=== PATIENT | female | born 1940 | race Caucasian/White ===

== ENCOUNTER → 2018-07-11 06:53 | Day surgery (SDC) | payer MEDICARE ==
[~2018-07-11 06:53] MED LIST: Heparin 2 UNITS/ML IVPREMIX* 1,000 ML IV ONE; Heparin 2 UNITS/ML IVPREMIX* 2,000 ML IV ONE; Heparin(*) 1000 UNIT/ML 10 ML VIAL CATH LAB IV ONE; Iodixanol 320 (CONTRAST) 100 ML SDV ONE; Iohexol 350 (CONTRAST) 200 ML MDV IV ONE; LORazepam TAB(*) 1 MG ONE; Lidocaine 1% INJ* 10 MG/ML 30 ML SDV ONE; Midazolam* 1 MG/ML 10 ML VIAL (10 MG) ONE; fentaNYL* 50 MCG/ML 5 ML VIAL (250 MCG VIAL) ONE
[2018-07-11 12:58] VITALS: BP 136/71
--- NOTE | 2018-07-11 13:52 | PN ---
Progress Note - Progress Note Date of Service: 07/11/18 SOAP: Subjective: Patient denies pain. No SOB. No nausea. Objective: Selected Entries 07/11/18 12:52 Pulse Rate 73 Heart Rate 73 Respiratory 17 Rate Blood Pressure 136/71 (mmHg) Blood Pressure 81 Mean O2 Sat by Pulse 96 Oximetry NAD, AAO x 3 Abd is soft, NT Right groin over arteriotomy is soft, minimally tender 2+ left CLEARING DISTRIBUTION CLERK pulse LE neuromuscular intact (patient ambulating independently when I arrived) Assessment: 77 YOF s/p pelvic and BLE arteriography from left CLEARING DISTRIBUTION CLERK access. Plan: 1. Routine IR follow up including RN call 07/14/[address] Contreras at [facility] for left CF atherectomy 3. Continue ASA 81 and Plavix
== END | disposition home or self-care (01) ==
LOC: CHICATH 06:53
PROVIDERS: ATTEND Radiology Diagnostic Radiology
DX: I70.223 Atherosclerosis of native arteries of extremities with rest pain, bilateral legs (principal); I25.2 Old myocardial infarction; Z95.5 Presence of coronary angioplasty implant and graft; I10 Essential (primary) hypertension; E78.5 Hyperlipidemia, unspecified; Z87.891 Personal history of nicotine dependence; Z88.0 Allergy status to penicillin; I25.10 Atherosclerotic heart disease of native coronary artery without angina pectoris; R00.2 Palpitations; J44.9 Chronic obstructive pulmonary disease, unspecified; E03.9 Hypothyroidism, unspecified
CPT/HCPCS: 75625; 75716; 76937; 99156; 99157; A9270-GY; C1760; C1769; C1887; C1894; J1644; J2250; J3010

== ENCOUNTER 2018-12-25 13:50 | Emergency (ER) | payer MEDICARE, OTHER ==
[2018-12-25 14:47] VITALS: BP 144/84
--- NOTE | 2018-12-25 15:20 | UC ---
Respiratory Complaint HPI - HPI Summary HPI Summary: Ms. Caro is out of her inhalers and nebs and has developed a cough and SOB. She has had some nasal congestion and sore throat but no fevers. - History of Current Complaint Chief Complaint: UCRespiratory Stated Complaint: resp complaint Time Seen by Provider: 12/25/18 14:56 Hx Obtained From: Patient Onset/Duration: Gradual Onset Timing: Constant Severity Initially: Mild Severity Currently: Moderate Pain Intensity: 6 Character: Cough: Productive Aggravating Factors: Nothing Alleviating Factors: Nothing Associated Signs And Symptoms: Positive: URI, Nasal Congestion, Sinus Discomfort - Allergies/Home Medications Allergies/Adverse Reactions: Allergies Allergy/AdvReac Type Severity Reaction Status Date / Time ibuprofen [From Motrin] Allergy Rash Verified 12/25/18 14:40 Penicillins Allergy Rash Verified 12/25/18 14:40 Sulfa (Sulfonamide Allergy Rash Verified 12/25/18 14:40 Antibiotics) PMH/Surg Hx/FS Hx/Imm Hx Cardiovascular History: Hypertension Respiratory History: COPD - Surgical History Surgery Procedure, Year, and Place: OPEN HEART SURGERY, STENTS X 3, HYSTERECTOMY , GALLBLADDER - Social History Alcohol Use: None Substance Use Type: None Smoking Status (MU): Never Smoked Tobacco Review of Systems All Other Systems Reviewed And Are Negative: Yes ENT: Positive: Sore Throat, Nasal Discharge, Sinus Congestion, Sinus Pain/ Tenderness Respiratory: Positive: Shortness Of Breath, Cough Is Patient Immunocompromised?: No Physical Exam - Summary Physical Exam Summary: She was nontoxic in appearance with stable vitals. Triage Information Reviewed: Yes Appearance: Well-Appearing Vital Signs: Initial Vital Signs Temp 99.1 F 12/25/18 14:43 Pulse 73 12/25/18 14:43 Resp 18 12/25/18 14:43 BP 144/84 12/25/18 14:43 Pulse Ox 96 12/25/18 14:43 Vital Signs Reviewed: Yes Eyes: Positive: Conjunctiva Clear ENT: Positive: Pharyngeal erythema, Nasal congestion, Sinus tenderness Neck: Positive: Supple Respiratory: Positive: No respiratory distress, No accessory muscle use, Decreased breath sounds, Wheezing, Expiration. Negative: Respiratory distress, Accessory muscle use Cardiovascular: Positive: RRR Respiratory Course/Dx - Course Course Of Treatment: Ms Caro has bronchitis and COPD exacerbation but is not in any distress. - Differential Dx/Diagnosis Provider Diagnosis: Bronchitis, COPD exacerbation Discharge - Sign-Out/Discharge Documenting (check all that apply): Patient Departure All imaging exams completed and their final reports reviewed: No Studies - Discharge Plan Condition: Stable Disposition: HOME Patient Education Materials: Acute Bronchitis (ED), COPD (Chronic Obstructive Pulmonary Disease) (ED) Referrals: Leisa Perales [Primary Care Provider] - Additional Instructions: Your blood pressure was a little hgh today. Please follow up with your PCP for further evaluation. - Billing Disposition and Condition Condition: STABLE Disposition: Home
== END 2018-12-25 15:35 | disposition home or self-care (01) ==
LOC: UCEAST 13:50
DX: J44.1 Chronic obstructive pulmonary disease with (acute) exacerbation (principal); I10 Essential (primary) hypertension; Z88.8 Allergy status to other drugs, medicaments and biological substances; Z88.0 Allergy status to penicillin; Z88.2 Allergy status to sulfonamides
CPT/HCPCS: 99202; G0463

== ENCOUNTER 2019-02-02 01:01 | Emergency (ER) | payer MEDICARE, OTHER ==
[2019-02-02] MEDS ORDERED: Magnesium Sulfate 2 GM IV* 2 GM/50 ML BAG ONE (01:04)
[2019-02-02] MEDS ORDERED: Albuterol/Ipratropium NEB.SOL* Albuterol 2.5 MG/Ipratropium 0.5 MG 3 ML INH ONE (01:18)
[2019-02-02] MEDS ORDERED: Magnesium Sulfate 2 GM IV* 2 GM/50 ML BAG IVPB ONE (01:19)
--- NOTE | 2019-02-02 01:27 | ED ---
Shortness of Breath - HPI Summary HPI Summary: This patient is a 78 year old F BIBA with a chief complaint of SOB since 1999. Patient arrives at 0102. Dr. Modi at bedside at 0102. Per EMS, patient was SaO2 80% RA, so they gave 2 Duoneb with 10mg dexamethasone with no improvement. Patient is on 2L O2 at night with a history of COPD. The patient rates the pain 0/10 in severity. Symptoms aggravated by nothing. Symptoms alleviated by nothing. Patient denies fever. Patient had bypass surgery 10 years ago at [place] and 3 stents placed 10 years ago. - History of Current Complaint Chief Complaint: EDRespiratoryDistress Time Seen by Provider: 02/02/19 01:18 Hx Obtained From: EMS Onset/Duration: Lasting Hours - Since 1999, Still Present Current Severity: Moderate Dyspnea At: Rest Aggravating Factors: Nothing Alleviating Factors: Nothing Associated Signs & Symptoms: Negative - Fever - Allergy/Home Medications Allergies/Adverse Reactions: Allergies Allergy/AdvReac Type Severity Reaction Status Date / Time ibuprofen [From Motrin] Allergy Rash Verified 02/02/19 03:35 Penicillins Allergy Rash Verified 02/02/19 03:35 Sulfa (Sulfonamide Allergy Rash Verified 02/02/19 03:35 Antibiotics) PMH/Surg Hx/FS Hx/Imm Hx Endocrine/Hematology History: Reports: Hx Thyroid Disease Cardiovascular History: Reports: Hx Hypertension Respiratory History: Reports: Hx Asthma, Hx Chronic Obstructive Pulmonary Disease (COPD) - Cancer History Cancer Type, 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 - Surgical History Surgery Procedure, Year, and Place: OPEN HEART SURGERY, STENTS X 3, HYSTERECTOMY , GALLBLADDER Infectious Disease History: No Infectious Disease History: Denies: Traveled Outside the [place] in Last 30 Days - Social History Alcohol Use: None Hx Substance Use: No Substance Use Type: Reports: None Hx Tobacco Use: No Smoking Status (MU): Never Smoked Tobacco Review of Systems Negative: Fever Positive: Shortness Of Breath All Other Systems Reviewed And Are Negative: Yes Physical Exam - Summary Physical Exam Summary: Appearance: moderate respiratory distress Skin: warm, dry, reflects adequate perfusion Head/face: normal Eyes: EOMI, ALEXIS ENT: normal Neck: supple, non-tender Respiratory: decreased bs rt side Cardiovascular: tachycardic Abdomen: non-tender, soft Musculoskeletal: normal, strength/ROM intact Neuro: normal, sensory motor intact, A&Ox3 Triage Information Reviewed: Yes Vital Signs On Initial Exam: Initial Vitals Temp Pulse Resp BP Pulse Ox 98.5 F 105 28 107/87 91 02/02/19 01:04 02/02/19 01:04 02/02/19 01:04 02/02/19 01:04 02/02/19 01:04 Vital Signs Reviewed: Yes Diagnostics - Vital Signs Vital Signs Temp Pulse Resp BP Pulse Ox 02/02/19 01:04 98.5 F 105 28 107/87 91 - Laboratory Result Diagrams: 02/02/19 01:23 02/02/19 01:23 Lab Statement: Any lab studies that have been ordered have been reviewed, and results considered in the medical decision making process. - Radiology CXR Radiology Interpretation Completed By: ED Physician Summary of Radiographic Findings: Pneumothorax of right side, pending official radiology report. CXR after chest tube Radiology Interpretation Completed By: ED Physician Summary of Radiographic Findings: PTX resolved, pending official radiology report. - EKG 0133 Cardiac Rate: Tachycardia - 107 EKG Rhythm: Sinus Tachycardia Summary of EKG Findings: Sinus tachycardia at [address] changes in anterior leads. 0304 Cardiac Rate: Tachycardia - 104 BPM EKG Rhythm: Sinus Tachycardia EKG Comparison: No Significant Change Summary of EKG Findings: Sinus tachycardia at [address] changes that are similar to the previous EKG taken upon arrival. Course/Dx - Course Course Of Treatment: This patient is a 78 year old F BIBA with a chief complaint of SOB since 1999. In the ED course, patient received 3x Duoneb and magnesium sulfate. Blood work obtained. CXR revealed pneumothorax of right side , pending official radiology report. EKG at 0133 revealed sinus tachycardia at [address] changes in anterior leads. Discussed patient case with Dr. Landa, surgeon, who will come to put in the chest tube. Discussed patient case with Dr. Armenta, top waddy, who recommended a repeat EKG. EKG at 0304 revealed sinus tachycardia at [address] changes that are similar to the previous EKG taken upon arrival. Discussed patient case with Dr. Rey, hospitalist, who accepted the patient for admission to [facility]. Discussed patient case with Dr. Landa after he put the chest tube in, who recommended the patient be transferred to another facility as [facility] does not have a thoracic surgeon. Discussed patient case with Dr. Walters, hospitalist, at [facility], who accepted the patient for transfer admission to [facility]. CXR after chest tube placement revealed PTX resolved, pending official radiology report. Therefore, the patient will be transferred with dx of right PTX. Patient understands and agrees with this plan. - Diagnoses Differential Diagnosis/HQI/PQRI: Positive: Asthma, Bronchitis, CHF, Chest Wall Pain, COPD Exacerbation, Pneumonia, Pneumothorax Provider Diagnoses: Pneumothorax, COPD exacerbation, Respiratory failure with hypoxia - Physician Notifications Discussed Care of Patient With: Rashel Landa Time Discussed With Above Provider: 01:44 Instructed by Provider To: Other - Discussed patient case with Dr. Landa, who will come to put in the chest tube. At 0214 discussed patient case with Dr. Armenta, who will review the patient case and recommended a repeat EKG. Discussed patient case with Dr. Rey at 0309 who accepted the patient for admission to [facility]. At 0310 discussed patient case with Dr. Landa who recommended the patient be transferred for thoracic surgery. At 0340 discussed patient case with Dr. Walters, hospitalist, at [facility], who accepted the patient for transfer admission to [facility]. - Critical Care Time Critical Care Time: 30-74 min - 60 minutes Discharge - Sign-Out/Discharge Documenting (check all that apply): Patient Departure - Transfer Patient Received Moderate/Deep Sedation with Procedure: No - Discharge Plan Condition: Fair Disposition: TRANS HIGHER LVL OF CARE FAC Referrals: Leisa Perales [Primary Care Provider] - - Billing Disposition and Condition Condition: FAIR Disposition: Trans Higher Lvl of Care Fac - Attestation Statements Document Initiated by Yadi: Yes Documenting Scribe: Brant Dee Provider For Whom Yadi is Documenting (Include Credential): Jw Modi MD Scribe Attestation: Brant Davenport, scribed for Jw Modi MD on 02/02/19 at 0347. Scribe Documentation Reviewed: Yes Provider Attestation: The documentation as recorded by the Brant espinosa accurately reflects the service I personally performed and the decisions made by me, Jw Modi MD Status of Scribe Document: Viewed
[2019-02-02 01:32] LABS: ABS Basophils 0.1 10^3/ul (0-0.2); ABS Eosinophils 0.6 10^3/ul (0-0.6); ABS Monocytes 1.3 10^3/ul (0-0.8); ABS Neutrophils 8.4 10^3/ul (1.5-7.7); Eosinophil % 5.1 %; Hematocrit 40 % (35-47); Hemoglobin 13.2 g/dL (12.0-16.0); Lymphocyte % 8.7 %; Mean Corpuscular HGB Conc 33 g/dL (31-36); Mean Corpuscular Hemoglobin 30 pg (27-31); Mean Corpuscular Volume 91 fL (80-97); Mean Platelet Volume 7.9 fL (7.4-10.4); Platelet Count 282 10^3/uL (150-450); Red Blood Count 4.34 10^6 /uL (3.70-4.87); Red Cell Distribution Width 14 % (10-15); White Blood Count 11.3 10^3/uL (3.5-10.8)
[2019-02-02 01:46] LABS: Activated Partial Thrombo Time 32.8 seconds (26.0-38.0); INR 1.06 (0.82-1.09)
[2019-02-02 01:53] LABS: ALT 21 U/L (7-52); AST 25 U/L (13-39); Albumin 4.1 g/dL (3.2-5.2); Albumin/Globulin Ratio 1.3 (1-3); Alkaline Phosphatase 38 U/L (34-104); Anion Gap 8 mmol/L (2-11); BUN/Creatinine Ratio 31.3 (8-20); Blood Urea Nitrogen 20 mg/dL (6-24); CO2 Carbon Dioxide 23 mmol/L (22-32); Calcium 9.3 mg/dL (8.6-10.3); Chloride 104 mmol/L (101-111); EGFR African American 108.9 (>60); Globulin 3.1 g/dL (2-4); Glucose 180 mg/dL (70-100); Potassium 3.9 mmol/L (3.5-5.0); Sodium 135 mmol/L (135-145); Total Protein 7.2 g/dL (6.4-8.9)
[2019-02-02 02:07] LABS: Troponin I 0.06 ng/mL (<0.04)
[2019-02-02] MEDS ORDERED: Aspirin 81 mg CHEW TAB* 81 MG TAB.CHEW PO ONE (02:19)
[2019-02-02] MEDS ORDERED: Morphine 4 MG/ML VIAL (1 ml) 4 MG/ML VIAL IV ONE (02:45)
--- NOTE | 2019-02-02 04:08 | PRO ---
CC: Leisa Perales NP, Mona * DATE OF PROCEDURE: 02/02/19 - EMERGENCY DEPT SURGEON: Rashel Landa MD. ANESTHESIA: 1% lidocaine plain used locally. PRE-PROCEDURE DIAGNOSIS: Right pneumothorax. POST-PROCEDURE DIAGNOSIS: Right pneumothorax. PROCEDURE: Placement of right pneumothorax catheter with Heimlich valve. ESTIMATED BLOOD LOSS: Minimal. DESCRIPTION OF PROCEDURE: The patient was placed sitting upright in the emergency room stretcher. The right chest was prepped and draped in sterile fashion. Time- out was performed. Local anesthetic was infiltrated in the midclavicular line second intercostal space. After adequate local anesthetic, the skin was kicked with 11-blade scalpel and a pneumothorax catheter was inserted and the air was aspirated. The catheter was advanced and the needle was withdrawn. Air exchange was noted. The catheter was sutured in position at 2 sites with 3-0 silk. The catheter was connected to the Heimlich valve and a Tegaderm dressing was applied. Heimlich valve was then connected to Pleur-evac suction and air leak was noted with respiratory variation. The patient tolerated the procedure well. [id number]/[facility] #: [id number] [facility] [facility]
[2019-02-02 05:07] LABS: Troponin I 0.29 ng/mL (<0.04)
--- NOTE | 2019-02-02 07:27 | ED ---
Progress - Progress Note Progress Note: This pt was signed out from Dr. Modi to Dr. Del Toro at shift change on 02/02/19 at 07:00 pending transfer. - Results/Orders Results/Orders: EKG at 09:06 Rate: Tachycardia at 102 bpm Rhythm: Sinus tachycardia Summary of EKG findings: ST depression in leads I, II, V4, V5, and V6. Re-Evaluation - Re-Evaluation First Eval Re-Evaluation Time: 08:08 Comment: Pt has a right sided chest tube and has an air leak. She states she has cramps in her legs, she was told she can't stand up. Second Eval Re-Evaluation Time: 08:37 Comment: Dr. Marinelli, crossbar frame wirer, at bedside. Third Eval Re-Evaluation Time: 09:05 Comment: Dr. Landa, surgeon, at bedside. Course/Dx - Course Course Of Treatment: This patient is a 78-year-old female who was signed out by Dr. Modi at shift change. He reports that the patient came in with the chief complaint of chest pain and shortness of breath. Chest x-ray showed pneumothorax. Dr. Landa place a chest tube. Right now the patient has no complaints except a mild pain at the site of incision. Dr. Landa recommended for the patient to be transferred to another facility with a cardiothoracic surgeon since he is unable to care for the chest tube. Dr. Modi called multiple nearby facilities and they have no available beds at this point. The patient continues to be waiting in the emergency department until we can get a hospital to take the patient. I discussed the case with Dr. Kauffman from [facility] and they accepted the patient for transfer. The patient continues to be hemodynamically stable except for a heart rate of 102 BPM. I also discussed the increased troponins with Dr. Gunn from cardiology and he doesnt think that the patient needs any anticoagulation at this point, or he doesnt think that the patient has an acute TX. Therefore the patient will be transferred to [facility]. - Diagnoses Provider Diagnoses: Pneumothorax, COPD exacerbation, Respiratory failure with hypoxia - Provider Notifications Discussed Care Of Patient With: Transfer center from [facility] Time Discussed With Above Provider: 07:50 Instructed by Provider To: Other - Discussed with [facility] transfer center who report they will contact a cardiothoracic surgeon. [08:40] Discussed pt care with Dr. Kauffman, from [facility], who accepts the pt for transfer. [09:09] Discussed with Dr. Gunn, recruiting assistant, who reports he doesn't think pt is having an acute TX and he does not know if troponin has increased due to stress. Dr. Gunn recommends to continue with the transfer. - Critical Care Time Critical Care Time: 30-74 min Discharge - Sign-Out/Discharge Documenting (check all that apply): Patient Departure - Transfer to [facility], Receiving Sign-Out Receiving patient FROM: Jw Modi Patient Received Moderate/Deep Sedation with Procedure: No - Discharge Plan Condition: Stable Disposition: TRANS HIGHER LVL OF CARE FAC Referrals: Leisa Perales [Primary Care Provider] - - Billing Disposition and Condition Condition: STABLE Disposition: Trans Higher Lvl of Care Fac - Attestation Statements Document Initiated by Scribe: Yes Documenting Scribe: Geeta Pitt Provider For Whom Scribe is Documenting (Include Credential): Supa Del Toro MD Scribe Attestation: Geeta Davenport scribed for Supa Del Toro MD on 02/02/19 at 1020. Scribe Documentation Reviewed: Yes Provider Attestation: The documentation as recorded by the Geeta espinosa accurately reflects the service I personally performed and the decisions made by , Supa Del Toro MD Status of Scribe Document: Viewed
[2019-02-02 08:58] LABS: Troponin I 0.51 ng/mL (<0.04)
[2019-02-02] MEDS ORDERED: HYDROcodone/ACETAMIN 5-325 MG* 1 TAB PO ONE (10:31)
[2019-02-02 11:37] VITALS: BP 112/69
== END 2019-02-02 11:25 | disposition short-term general hospital (02) ==
LOC: ED 01:01
DX: J93.9 Pneumothorax, unspecified (principal); J44.1 Chronic obstructive pulmonary disease with (acute) exacerbation; J96.91 Respiratory failure, unspecified with hypoxia; Z88.0 Allergy status to penicillin; Z88.2 Allergy status to sulfonamides; Z88.8 Allergy status to other drugs, medicaments and biological substances; I10 Essential (primary) hypertension; J45.909 Unspecified asthma, uncomplicated; E07.9 Disorder of thyroid, unspecified
CPT/HCPCS: 36415; 71045; 80053; 82803; 83605; 83880; 84484; 85025; 85610; 85730; 87040; 93005; 96365; 96375; 99285; A9270-GY; J2270; J3475

== ENCOUNTER 2019-04-09 11:11 | Emergency (ER) | payer MEDICARE ==
--- NOTE | 2019-04-09 11:25 | ED ---
Shortness of Breath - HPI Summary HPI Summary: Patient is a 78 y/o F presenting to ED with complaints of worsening SOB over the past three days. She reports Hx of collapsed right lung in February of 2019 and had a partial right lobectomy at [facility]. Patient is on 2 L oxygen all the time, but increased this amount when she began to feel SOB. She additionally notes that she feels congested but has not been able to bring up any material. She states that she recently had some fluid and air drained from her left lung at [facility]. 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 Patient does not report fever, chills, erythema of eyes, sore throat, chest pain, cough, abdominal pain, N/V, dysuria, hematuria, myalgia , edema, rash and dizziness. On triage, pain is rated 0/10, nothing is noted to aggravate/alleviate Sx. Home medications and allergies are reviewed. - History of Current Complaint Chief Complaint: EDShortnessOfBreath Hx Obtained From: Patient Onset/Duration: Lasting Days, Still Present, Worse Since Current Severity: None Aggravating Factors: Nothing Alleviating Factors: Nothing Associated Signs & Symptoms: Negative - Allergy/Home Medications Allergies/Adverse Reactions: Allergies Allergy/AdvReac Type Severity Reaction Status Date / Time ibuprofen [From Motrin] Allergy Rash Verified 03/31/19 14:10 Penicillins Allergy Rash Verified 03/31/19 14:10 Sulfa (Sulfonamide Allergy Rash Verified 03/31/19 14:10 Antibiotics) Home Medications: Home Medications Albuterol/Ipratropium NEB.MEHUL* [Duoneb (Albuterol 2.5 MG/Ipratropium 0.5 MG)] 3 ml INH Q4H PRN 04/09/19 [History Confirmed 04/09/19] Hydrocodone/Acetaminophen [Hydrocodone-Acetamin 5-325 mg] 1 each PO Q6HR PRN MDD 4 04/09/19 [History Confirmed 04/09/19] PMH/Surg Hx/FS Hx/Imm Hx Endocrine/Hematology History: Reports: Hx Thyroid Disease Cardiovascular History: Reports: Hx Hypertension Respiratory History: Reports: Hx Asthma, Hx Chronic Obstructive Pulmonary Disease (COPD) - Cancer History Cancer Type, 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 - Surgical History Surgery Procedure, Year, and Place: OPEN HEART SURGERY, STENTS X 3, HYSTERECTOMY , GALLBLADDER Infectious Disease History: No Infectious Disease History: Denies: Traveled Outside the [place] in Last 30 Days - Family History Known Family History: Positive: Cardiac Disease, Diabetes - Social History Alcohol Use: None Hx Substance Use: No Substance Use Type: Reports: None Hx Tobacco Use: No Smoking Status (MU): Never Smoked Tobacco Review of Systems Negative: Fever, Chills Negative: Erythema Negative: Sore Throat Negative: Chest Pain Respiratory: Other - positive - congestion Positive: Shortness Of Breath Negative: Abdominal Pain, Vomiting, Nausea Negative: dysuria, hematuria Negative: Myalgia, Edema Negative: Rash Neurological: Other - negative - dizziness All Other Systems Reviewed And Are Negative: Yes Physical Exam - Summary Physical Exam Summary: Constitutional: Well-developed, Well-nourished, Alert. (-) Distressed Skin: Warm, Dry HENT: Normocephalic; Atraumatic Eyes: Conjunctiva normal Neck: Musculoskeletal ROM normal neck. (-) JVD, (-) Stridor, (-) Tracheal deviation Cardio: Rhythm regular, rate normal, Heart sounds normal; Intact distal pulses; The pedal pulses are 2+ and symmetric. Radial pulses are 2+ and symmetric. (-) Murmur Pulmonary/Chest wall: Diminished breath sounds on the left. Effort normal. (-) Respiratory distress, (-) Wheezes, (-) Rales Abd: Soft, (-) tenderness, (-) Distension, (-) Guarding, (-) Rebound Musculoskeletal: (-) Edema Lymph: (-) Cervical adenopathy Neuro: Alert, Oriented x3 Psych: Mood and affect Normal Triage Information Reviewed: Yes Vital Signs On Initial Exam: Initial Vitals Temp Pulse Resp BP Pulse Ox 97.9 F 73 18 143/79 97 04/09/19 11:12 04/09/19 11:12 04/09/19 11:12 04/09/19 11:12 04/09/19 11:12 Vital Signs Reviewed: Yes Diagnostics - Vital Signs Vital Signs Temp Pulse Resp BP Pulse Ox 04/09/19 11:12 97.9 F 73 18 143/79 97 - Laboratory Result Diagrams: 04/09/19 12:03 04/09/19 12:03 Lab Statement: Any lab studies that have been ordered have been reviewed, and results considered in the medical decision making process. - Radiology CXR Radiology Interpretation Completed By: Radiologist Summary of Radiographic Findings: CXR IMPRESSION: 1. COPD. 2. PERSISTENT RIGHT APICAL LOCULATED HYDROPNEUMOTHORAX. 3. PERSISTENT LEFT SIDED MODERATE HYDROPNEUMOTHORAX. THIS REPORT WAS REVIEWED BY DR. ELLIS. - EKG 1137 Cardiac Rate: NL - rate of 74 BPM EKG Rhythm: Sinus Rhythm Summary of EKG Findings: EKG showed NSR with rate of 74 BPM, no STEMI. This EKG was reviewed and interpreted by Dr. Ellis. Re-Evaluation - Re-Evaluation First Eval Re-Evaluation Time: 16:54 Comment: Patient is tachypneic. Patient has dentures, no prior adverse reactions to anesthetic reactions, no apnea. Mallampati score is 1. ASA score is 3. Second Eval Re-Evaluation Time: 18:45 Change: Improved Comment: Patient is breathing better and appears comfortable. Third Eval Re-Evaluation Time: 18:52 Comment: [facility] later called informing that they do not have bed availability currently and cannot take the patient. [facility] was contacted, they report they do not have bed available for the patient at this time either. [facility] additionally had reported that this patient is not appropriate for their services. Hospital resources and nursing staff are being utilized to locate appropriate ambulance service for this patient. Fourth Eval Re-Evaluation Time: 19:54 Comment: [facility] called back, they report they have a bed available for the patient. Transfer is being set up for the patient, appropriate ambulance service to be obtained. Course/Dx - Course Course Of Treatment: Patient is a 78 y/o F presenting to ED with complaints of worsening SOB over the past three days. She reports Hx of collapsed right lung in February of 2019 and had a partial right lobectomy at [facility]. Patient is on 2 L oxygen all the time, but increased this amount when she began to feel SOB. She additionally notes that she feels congested but has not been able to bring up any material. She states that she recently had some fluid and air drained from her left lung at [facility]. 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 On physical exam, patient is noted to have diminished breath sounds on the left. EKG showed NSR with rate of 74 BPM, no STEMI. CXR IMPRESSION: 1. COPD. 2. PERSISTENT RIGHT APICAL LOCULATED HYDROPNEUMOTHORAX. 3. PERSISTENT LEFT SIDED MODERATE HYDROPNEUMOTHORAX. Bloodwork was obtained. Abnormal values include Hgb 10.8, Hct 33, absolute lymphs 0.6, absolute monos 1, absolute eos 0.9, creatinine 0.50, BUN/creatinine ratio 22. Trop was negative, lactic acid was 1.1. Patient received morphine 2 mg , lidocaine 10 ml, duoneb, and decadron 8 mg IV during ED course. 1609 - Patient 's case was discussed with Dr. Jina Madrigal, Dr. Madrigal will come to ED for chest tube placement. 1628 - Dr. Madrigal in department to place left chest tube. Patient will be transferred to [facility] for cardiothoracic surgery services. 1645 - Patient's case was discussed with Dr. Gavino Dupont. Dr. Madrigal discussed left chest tube placement. Dr. Monahan accepts the patient for admission to his services for VATS procedure. On reval, patient is tachypneic. Patient has dentures, no prior adverse reactions to anesthetic reactions, no apnea. Mallampati score is 1. ASA score is 3. PROCEDURE NOTE. PROCEDURE NAME: PROCEDURAL SEDATION. SEDATION PROVIDER: SHABNAM ELLIS MD. PROCEDURALIST: JINA MADRIGAL MD. DETAILS: I provided procedural sedation for the patient. Informed consent including the risks of hypotension and apnea and allergic reaction were discussed. Via did a presedation assessment including heart and lung exam, ASA score of 3, Mallampati score 1. The patient's dentures were removed. Emergency airway equipment was available at the bedside, including suction and bag valve mask. End-tidal capnography was utilized. Respiratory therapy was at the bedside. Chest tube was placed by Dr. Jina Madrigal of Gen. surgery service. Patient received a total of 110 mg of IV propofol in 3 aliquots. She tolerated procedural sedation well, she did require 3 ventilations during the initiation of sedation, based on low output from her capnography, which was later discovered to be related to placement of the capnography probe. She emerged uneventfully from procedural sedation. 185 - [facility] later called informing that they do not have bed availability currently and cannot take the patient. [facility] was contacted, they report they do not have bed available for the patient at this time either. [facility] additionally had reported that this patient is not appropriate for their services. Hospital resources and nursing staff are being utilized to locate appropriate ambulance service for this patient. 1953 - [facility] called back, they report they have a bed available for the patient. Transfer is being set up for the patient, appropriate ambulance service to be obtained. Patient is signed out to Dr. Park at 04/09/19 shift change pending transfer of this patient. - Diagnoses Provider Diagnoses: Pneumothorax - Physician Notifications Discussed Care of Patient With: Jina Madrigal Time Discussed With Above Provider: 16:09 Instructed by Provider To: Other - 1609 - Patient's case was discussed with Dr. Jina Madrigal, Dr. Madrigal will come to ED for chest tube placement. 1628 - Dr. Madrigal in department to place left chest tube. Patient will be transferred to [facility] for cardiothoracic surgery services. 1645 - Patient's case was discussed with Dr. Gavino Dupont. Dr. Madrigal discussed left chest tube placement. Dr. Monahan accepts the patient for admission to his services for VATS procedure. - Critical Care Time Critical Care Time: 30-74 min - 60 minutes Discharge ED - Sign-Out/Discharge Documenting (check all that apply): Sign-Out Patient Signing out patient TO: Belen Park Patient Received Moderate/Deep Sedation with Procedure: Yes - Discharge Plan Condition: Fair Disposition: TRANS HIGHER LVL OF CARE FAC Patient Education Materials: Moderate Sedation (ED) Referrals: Konstantin Elaine SCREW DOWN [Primary Care Provider] - - Attestation Statements Document Initiated by Scribe: Yes Documenting Scribe: PRAMOD SMALL Provider For Whom Scribe is Documenting (Include Credential): SHABNAM ELLIS MD Scribe Attestation: PRAMOD Davenport, scribed for SHABNAM ELLIS MD on 04/09/19 at 2008. Status of Scribe Document: Ready
[2019-04-09 12:15] LABS: ABS Basophils 0.1 10^3/ul (0-0.2); ABS Eosinophils 0.9 10^3/ul (0-0.6); ABS Lymphocytes 0.6 10^3/ul (1.0-4.8); Hematocrit 33 % (35-47); Hemoglobin 10.8 g/dL (12.0-16.0); Lymphocyte % 6.3 %; Mean Corpuscular HGB Conc 33 g/dL (31-36); Mean Corpuscular Hemoglobin 29 pg (27-31); Mean Corpuscular Volume 87 fL (80-97); Mean Platelet Volume 8.8 fL (7.4-10.4); Platelet Count 281 10^3/uL (150-450); Red Blood Count 3.78 10^6 /uL (3.70-4.87); Red Cell Distribution Width 15 % (10-15); White Blood Count 9.6 10^3/uL (3.5-10.8)
[2019-04-09 12:32] LABS: Albumin 3.7 g/dL (3.2-5.2); Albumin/Globulin Ratio 1.3 (1-3); Calcium 9.3 mg/dL (8.6-10.3); EGFR African American 144.8 (>60); EGFR Non-African American 119.6 (>60); Globulin 2.8 g/dL (2-4); Potassium 3.7 mmol/L (3.5-5.0); Total Bilirubin 0.5 mg/dL (0.2-1.0); Total Protein 6.5 g/dL (6.4-8.9)
[2019-04-09 12:34] LABS: Troponin I 0.01 ng/mL (<0.04)
[2019-04-09] MEDS: Albuterol/Ipratropium NEB.SOL* Albuterol 2.5 MG/Ipratropium 0.5 MG 3 ML INH ONE (16:50)
[2019-04-09] MEDS ORDERED: Lidocaine 2% w/ EPI 1:200,000* 20 ML SDV VIAL ONE (16:58)
[2019-04-09] MEDS: Morphine 4 MG/ML VIAL (1 ml) 4 MG/ML VIAL IV ONE ×3 (17:43→22:55)
[2019-04-09] MEDS: Dexamethasone IV* 4 MG/ML 1 ML (4 MG) IV SLOW PU ONE (17:44)
[2019-04-09] MEDS: Propofol* 10 MG/ML 20 ML BTL IV PUSH ONE (17:47)
[2019-04-09] MEDS: Propofol* 10 MG/ML 100 ML BTL IV ONE (17:48)
[2019-04-09] MEDS: Lidocaine 2% w/ EPI 1:200,000* 20 ML SDV VIAL INJ ONE (17:54)
--- NOTE | 2019-04-09 19:56 | ED ---
Progress - Progress Note Progress Note: This pt is a sign out to Dr. Park from Dr. Ellis at shift change 04/09/191899 pending a transfer to a facility of higher level of care. Re-Evaluation - Re-Evaluation First Eval Re-Evaluation Time: 16:54 Comment: Patient is tachypneic. Patient has dentures, no prior adverse reactions to anesthetic reactions, no apnea. Mallampati score is 1. ASA score is 3. Second Eval Re-Evaluation Time: 18:45 Change: Improved Comment: Patient is breathing better and appears comfortable. Third Eval Re-Evaluation Time: 18:52 Comment: [facility] later called informing that they do not have bed availability currently and cannot take the patient. [facility] was contacted, they report they do not have bed available for the patient at this time either. [place] [place] [facility] additionally had reported that this patient is not appropriate for their services. Hospital resources and nursing staff are being utilized to locate appropriate ambulance service for this patient. Fourth Eval Re-Evaluation Time: 19:54 Comment: [facility] called back, they report they have a bed available for the patient. Transfer is being set up for the patient, appropriate ambulance service to be obtained. Course/Dx - Course Course Of Treatment: This pt is a sign out to Dr. Park from Dr. Ellis at shift change 04/09/191899 pending a transfer to a facility of higher level of care. Pt was transfered to [facility] at 2310. She had no further complications during this ED course. - Diagnoses Provider Diagnoses: Pneumothorax - Provider Notifications Time Discussed With Above Provider: 16:09 Instructed by Provider To: Other - 1609 - Patient's case was discussed with Dr. Jina Madrigal, Dr. Madrigal will come to ED for chest tube placement. 1628 - Dr. Madrigal in department to place left chest tube. Patient will be transferred to [facility] for cardiothoracic surgery services. 1645 - Patient's case was discussed with Dr. Gavino Dupont. Dr. Madrigal discussed left chest tube placement. Dr. Monahan accepts the patient for admission to his services for VATS procedure. - Critical Care Time Critical Care Time: 30-74 min - 60 minutes Discharge ED - Sign-Out/Discharge Documenting (check all that apply): Patient Departure - transferred Patient Received Moderate/Deep Sedation with Procedure: Yes - Discharge Plan Condition: Fair Disposition: TRANS HIGHER LVL OF CARE FAC Patient Education Materials: Moderate Sedation (ED) Referrals: Konstantin Elaine NP [Primary Care Provider] - - Billing Disposition and Condition Condition: FAIR Disposition: Trans Higher Lvl of Care Fac - Attestation Statements Document Initiated by Scribe: Yes Documenting Scribe: Yusuf Lozano Provider For Whom Scribe is Documenting (Include Credential): Belen Park MD Scribe Attestation: Yusuf Davenport, scribed for Belen Park MD on 04/10/19 at 0504. Scribe Documentation Reviewed: Yes Provider Attestation: The documentation as recorded by the Yusuf espinosa accurately reflects the service I personally performed and the decisions made by , Belen Park MD Status of Scribe Document: Viewed
--- NOTE | 2019-04-09 20:23 | PRO ---
PROCEDURE REPORT: DATE OF PROCEDURE: 04/09/19 ATTENDING SURGEON: Jina Madrigal MD. ER PHYSICIAN: Mio Ellis MD. PRE-PROCEDURE DIAGNOSIS: Left recurrent complex hydropneumothorax. POST-PROCEDURE DIAGNOSIS: Left recurrent complex hydropneumothorax. TITLE OF PROCEDURE: Placement of 24-Malaysian left chest tube. INDICATION FOR PROCEDURE: Ms. Caro is a very pleasant 78-year-old female with a history of COPD and recurrent bilateral pneumothoraces. She has had multiple chest tubes and on the right side as well as a VATs. On the left side , she most recently had a left hydropneumothorax approximately 1-1/2 weeks ago. She was transferred to [facility] under the care of a thoracic surgeon, who placed a 24-Malaysian chest tube on the left side, and when her pneumothorax improved and she was stable, it was removed, which was approximately 5 days ago. Since then, she states that she felt well initially for the first 1 or 2 days after discharge, but then she started to feel short of breath again. She presented to the emergency room today and was found to have a recurrent moderate-sized left hydropneumothorax. She was oxygenating well on 2 L nasal cannula; however, she had significant complaints of shortness of breath and dyspnea and was very uncomfortable. Therefore, the decision was made to place a left chest tube. She understood the risks, benefits, and alternatives to the procedure. She understood the risks included, but were not limited to bleeding, infection, injury to nearby structures including the lung. DESCRIPTION OF PROCEDURE: The patient was placed supine on the stretcher with her left arm elevated above her head. Dr. Ellis was present to administer the conscious sedation with propofol. Once this was administered, her left axilla and left chest wall were prepped and draped in normal sterile fashion. Prior to beginning the procedure, a time-out was performed verifying the patient's name, MR number, and the procedure to be performed, which was placement of left chest 24- Malaysian thoracostomy tube. Next, 2% lidocaine with epinephrine was infiltrated into the subcutaneous tissue at approximately the fourth intercostal space at the level of the nipple. She had had a previous chest tube and this current chest tube was placed in the intercostal space above where her previous one had been. The skin was divided with a 10-blade down to the subcutaneous tissue, and using a large Cher clamp, the intercostal muscles and the intrapleural space was entered bluntly. Once this was entered there was a small scruggs of air. Using digital palpation between the rib cages, the lung was felt to be very near the ribs. There was not very much space for placement of the chest tube. There were also several adhesions that were palpable that were felt just surrounding where my finger had been inserted. This scar tissue was bluntly dissected down using the finger in order to allow for a tract for placement of the chest tube. Next, the 24- Malaysian chest tube was advanced through this tract and given that this is a loculated hydropneumothorax, the tube was not advanced very far, but directed apically. It was inserted to approximately 12 cm at the skin. After this was done, the chest tube was connected to suction. There was a small air leak that was noted and then a 0-silk suture was used to close the incision and secure the chest tube to the chest wall. Sterile dressing was then placed and the patient was awoken from her sedation. She tolerated this procedure very well. During the case, her vital signs remained stable. A postprocedure x-ray was performed, which showed that the chest tube was in place and inside the left chest cavity; however, it did not appear that the hydropneumothorax was significantly changed. Possibly after initial evacuation of air, the chest tube become clogged with blood as the patient was on Eliquis and there was some bleeding upon entry into the thoracic cavity, likely from the adhesiolysis. However, the patient after the procedure felt very comfortable and again was still saturating in the high 90s on 2 L nasal cannula. This postprocedure chest x-ray was reviewed with Dr. Ellis and the patient has been accepted for transfer to [facility] for further care by her thoracic surgeon. [id number]/[facility] #: [id number] JOSE ELIAS
[2019-04-09] MEDS: Metoprolol Tartrate TAB* 50 mg PO ONE (22:13)
[2019-04-09 22:55] VITALS: BP 133/81
== END 2019-04-09 23:10 | disposition short-term general hospital (02) ==
LOC: ED 11:11
DX: J93.9 Pneumothorax, unspecified (principal); E07.9 Disorder of thyroid, unspecified; I10 Essential (primary) hypertension; J44.9 Chronic obstructive pulmonary disease, unspecified; Z79.01 Long term (current) use of anticoagulants; Z79.899 Other long term (current) drug therapy; Z88.6 Allergy status to analgesic agent; Z88.0 Allergy status to penicillin; Z88.2 Allergy status to sulfonamides
CPT/HCPCS: 36415; 71045; 71046; 80053; 83605; 84484; 85025; 87040; 93005; 96374; 96375; 96376; 99285; A9270-GY; J1100; J2270; J2704